=== PATIENT | male | born 1975 ===

== ENCOUNTER 2025-01-11 11:00 | Day surgery (SDC) | payer OTHER ==
[2025-01-04 09:28] VITALS: BP 134/94
[2025-01-04 09:38] LABS: BASO % 0.6 % (0.1-1.2); EOS # 0.04 (0.04-0.54); EOS % 0.6 % (0.7-7.0); LYMPH # 1.42 (1.18-3.74); LYMPH % 21.3 % (19.3-53.1); MEAN PLATELET VOLUME 9.20 fl (9.4-12.4); MONO # 0.64 (0.24-0.82); MONO % 9.6 % (4.7-12.5); NEUT # 4.49 (1.56-6.13); NEUT % 67.2 % (34.0-71.1); RED CELL DISTRIBUTION WIDTH 15.8 % (11.6-14.4)
[2025-01-04 09:53] LABS: URINE APPEARANCE Clear; URINE BILIRRUBIN Negative (NEGATIVE); URINE BLOOD Small; URINE COLOR Yellow; URINE GLUCOSE Negative (NEGATIVE); URINE KETONE Trace (NEGATIVE); URINE LEUKOCYTE Negative; URINE NITRATE Negative; URINE PROTEIN Trace (NEGATIVE); URINE UROBILINOGEN 0.2 E.U./dl
[2025-01-04 09:54] LABS: URINE EPITHELIAL CELLS 1.6 uL (0.0-38.8); URINE RBC 30.0 uL (0.0-20.8)
[2025-01-04 09:58] LABS: URINE BACTERIA 3.5 uL (0.0-1933); URINE CAST 0.00 uL (0.0-1.40); URINE WBC 1.6 uL (0.0-23.2)
[2025-01-04 10:07] LABS: COVID-19 AG NEGATIVE (NEGATIVE)
[2025-01-04 10:08] LABS: INR 0.99
[2025-01-04 10:14] LABS: BUN CREA RATIO 17.0 (7.0-25.0); CREATININE SERUM 0.86 mg/dL (0.70-1.30); GFR 93.75; GLUCOSE FASTING 88.0 mg/dL (65-100); OSMOLALITY SERUM 280.0 MOSM/KG (275-295)
[~2025-01-11] VITALS: Ht 167.6 cm; Wt 66.2 kg
[~2025-01-11 11:00] MED LIST: ATORVASTATIN CA10 MG; COZAAR50 MG PO; GENTAMICIN SULFATE 40 MG/ML VIAL ONE
[2025-01-11] MEDS ORDERED: GENTAMICIN SULFATE 40 MG/ML VIAL IV ONE (13:30)
== END 2025-01-11 17:30 | disposition home or self-care (01) ==
LOC: CIR.AMB 11:00
PROVIDERS: ATTEND Urology
DX: C62.12 Malignant neoplasm of descended left testis (principal)